=== PATIENT | male | born 1940 | race Two or more races ===

== ENCOUNTER 2021-12-14 00:36 | Emergency (ER) | payer OTHER, SELFPAY ==
[2021-12-14 00:49] VITALS: BP 139/72; PULSE 92; RESP 18; TEMP 36.1; O2SAT 98; BMI 22.6
[2021-12-14 01:01] LABS: Glucose, Whole Blood 125 mg/dL (60-115)
[2021-12-14 01:19] LABS: MANUAL DIFF FLAG NO
[2021-12-14 01:20] LABS: Basophils Percent Auto 0.2 % (0-2); Eosinophils Absolute Auto 0.1 X10*3/uL (0.0-0.4); Eosinophils Percent Auto 0.7 % (0-4); Hematocrit 43.4 % (42.0-52.0); Hemoglobin 14.4 g/dl (14.0-18.0); Imm Gran Abs Auto 0.04 X10*3/uL (0.00-0.03); Imm Gran Pct Auto 0.3 % (0.0-0.4); Lymphocytes Absolute Auto 3.2 X10*3/uL (1.2-4.9); Lymphocytes Percent Auto 26.4 % (20-40); Mean Corpuscular HGB Conc 33.2 g/dl (31.0-36.0); Mean Corpuscular Hemoglobin 30.1 pg (27.0-33.0); Mean Corpuscular Volume 90.6 fL (80.0-98.0); Mean Platelet Volume 9.7 fL (9.4-12.4); Monocytes Absolute Auto 0.9 X10*3/uL (0.1-1.2); Monocytes Percent Auto 7.7 % (2-11); Neutrophils Absolute Auto 7.9 x10*3/uL (2.0-8.3); Neutrophils Percent Auto 64.7 % (45-73); Platelet Count 239 X10*3/uL (160-400); Red Blood Count 4.79 X10*6/uL (4.60-5.80); Red Cell Distribution Width 13.8 % (11.0-16.0); White Blood Count 12.2 X10*3/uL (4.8-10.8)
[2021-12-14 01:43] LABS: COVID-19 Test Negative (Negative)
[2021-12-14 01:51] LABS: Alanine Aminotransferase 16 U/L (0-40); Albumin Level 4.3 g/dL (3.5-5.0); Alkaline Phosphatase 18 U/L (39-117); Anion Gap 17 (12-20); Aspartate Amino Transferase 45 U/L (5-37); Bilirubin Total 0.9 mg/dL (0.0-1.0); Blood Urea Nitrogen 21 mg/dL (9-16); Calcium 9.8 mg/dL (8.4-10.2); Carbon Dioxide 24 mmol/L (22-29); Chloride 103 mmol/L (96-108); Creatinine Clr Calc Pharmacy 43.7; Estimated Glomerular Filt Rate 59; Glucose Random 136 mg/dL (60-115); Potassium 4.8 mmol/L (3.3-5.1); Sodium 139 mmol/L (135-145); Total Protein 7.8 g/dL (6.5-8.0)
[2021-12-14 02:01] VITALS: BP 108/51; PULSE 84; RESP 18; O2SAT 96
--- NOTE | 2021-12-14 03:30 | ED.GENADULT ---
HPI - General Adult General Chief complaint: Altered Mental Status Stated complaint: Crisis Time Seen by Provider: 12/14/21 03:30 Source: patient and family ( and son) Mode of arrival: EMS History of Present Illness HPI narrative: This is an 81-year-old male who was brought in by please department and concern about patient with altered mental status as patient approached the officer stating that he was confused and he was unsure how much driving he had been doing and he cannot recall why he left his house. Family arrived and on further history taking they state that he left the house early in the morning at approximately 09:30 to go in run an errand and then never returned. The family had received reports that the patient was in [place], but he had left his phone and apple watch at the house so they were unable to track him. The son states that the patient is been being worked up for memory problems but otherwise has not been officially diagnosed with dementia at this time. Patient denies any difficulty breathing, chest pain/palpitations and states that he otherwise feels well. Patient states that ?I almost started crying when I saw my family come in?. Related Data Allergies Allergy/AdvReac Type Severity Reaction Status Date / Time No Known Allergies Allergy Verified 12/14/21 00:48 Review of Systems Review of Systems: Pertinent positives and negatives as stated in HPI 10 point review of systems is otherwise negative. PMFSH Past Medical History Source: nursing notes reviewed Physical Exam ED Vital Signs: Vital Signs - 24 hr 12/14/21 00:49 12/14/21 02:01 Temperature 97 F Pulse Rate 92 84 Respiratory Rate 18 18 Blood Pressure 139/72 108/51 L Pulse Oximetry 98 96 BMI result Body Mass Index 22.6 VITAL SIGNS: Reviewed. GENERAL: Well developed, well nourished, in no acute distress. HEAD: Normocephalic/atraumatic EYES: PERRLA, EOMI OROPHARYNX: no oral lesions noted, posterior pharynx clear LUNGS: Normal breath sounds. No adventitious sounds or accessory muscle use. SpO2<98> CARDIOVASCULAR: Regular rate and rhythm without noted murmurs, no JVD or lower extremity edema. ABDOMEN: Soft, non-tender, non-distended with bowel sounds. NEUROLOGIC: Alert and oriented x 4. Course Course Course Narrative: 81-year-old male with history and clinical presentation consistent with a dementia related event. On review of all investigations there are no acute findings other than mildly elevated leukocytes which are not associated with any clinical or historical findings. Family has arrived and that they will take the patient home and otherwise follow-up as it was communicated with them this is likely going to occur again and is likely associated with dementia. They acknowledge understanding and will follow-up with their primary care provider. Medical Decision Making Lab Data Result diagrams: 12/14/21 01:08 12/14/21 01:08 Labs: Lab Results 12/14/21 12/14/21 12/14/21 Range/Units 00:57 01:08 01:08 WBC 12.2 H (4.8-10.8) X10*3/uL RBC 4.79 (4.60-5.80) X10*6/uL Hgb 14.4 (14.0-18.0) g/dl Hct 43.4 (42.0-52.0) % MCV 90.6 (80.0-98.0) fL MCH 30.1 (27.0-33.0) pg MCHC 33.2 (31.0-36.0) g/dl RDW 13.8 (11.0-16.0) % Plt Count 239 (160-400) X10*3/uL MPV 9.7 (9.4-12.4) fL Immature Gran % (Auto) 0.3 (0.0-0.4) % Neut % (Auto) 64.7 (45-73) % Lymph % (Auto) 26.4 (20-40) % [place] % (Auto) 7.7 (2-11) % Eos % (Auto) 0.7 (0-4) % Baso % (Auto) 0.2 (0-2) % Lymph # (Auto) 3.2 (1.2-4.9) X10*3/uL [place] # (Auto) 0.9 (0.1-1.2) X10*3/uL Eos # (Auto) 0.1 (0.0-0.4) X10*3/uL Baso # (Auto) 0.0 (0.0-0.2) X10*3/uL Abs Immat Gran (auto) 0.04 H (0.00-0.03) X10*3/uL Absolute Neuts (auto) 7.9 (2.0-8.3) x10*3/uL Absolute Nucleated RBC 0.000 (0.0-0.012) X10*3/uL Nucleated RBC % (auto) 0.0 (0.0-0.2) /100WBC Sodium 139 (135-145) mmol/L Potassium 4.8 (3.3-5.1) mmol/L Chloride 103 (96-108) mmol/L Carbon Dioxide 24 (22-29) mmol/L Anion Gap 17 (12-20) BUN 21 H (9-16) mg/dL Creatinine 1.19 (0.5-1.4) mg/dL Estim Creat Clear Calc 43.7 Estimated GFR 59 POC Glucose 125 H (60-115) mg/dL Random Glucose 136 H (60-115) mg/dL Calcium 9.8 (8.4-10.2) mg/dL Total Bilirubin 0.9 (0.0-1.0) mg/dL AST 45 H (5-37) U/L ALT 16 (0-40) U/L Alkaline Phosphatase 18 L (39-117) U/L Total Protein 7.8 (6.5-8.0) g/dL Albumin 4.3 (3.5-5.0) g/dL COVID-19 ([facility]) (Negative) COVID-19 Clin Com 12/14/21 Range/Units 01:08 WBC (4.8-10.8) X10*3/uL RBC (4.60-5.80) X10*6/uL Hgb (14.0-18.0) g/dl Hct (42.0-52.0) % MCV (80.0-98.0) fL MCH (27.0-33.0) pg MCHC (31.0-36.0) g/dl RDW (11.0-16.0) % Plt Count (160-400) X10*3/uL MPV (9.4-12.4) fL Immature Gran % (Auto) (0.0-0.4) % Neut % (Auto) (45-73) % Lymph % (Auto) (20-40) % [place] % (Auto) (2-11) % Eos % (Auto) (0-4) % Baso % (Auto) (0-2) % Lymph # (Auto) (1.2-4.9) X10*3/uL [place] # (Auto) (0.1-1.2) X10*3/uL Eos # (Auto) (0.0-0.4) X10*3/uL Baso # (Auto) (0.0-0.2) X10*3/uL Abs Immat Gran (auto) (0.00-0.03) X10*3/uL Absolute Neuts (auto) (2.0-8.3) x10*3/uL Absolute Nucleated RBC (0.0-0.012) X10*3/uL Nucleated RBC % (auto) (0.0-0.2) /100WBC Sodium (135-145) mmol/L Potassium (3.3-5.1) mmol/L Chloride (96-108) mmol/L Carbon Dioxide (22-29) mmol/L Anion Gap (12-20) BUN (9-16) mg/dL Creatinine (0.5-1.4) mg/dL Estim Creat Clear Calc Estimated GFR POC Glucose (60-115) mg/dL Random Glucose (60-115) mg/dL Calcium (8.4-10.2) mg/dL Total Bilirubin (0.0-1.0) mg/dL AST (5-37) U/L ALT (0-40) U/L Alkaline Phosphatase (39-117) U/L Total Protein (6.5-8.0) g/dL Albumin (3.5-5.0) g/dL COVID-19 ([facility]) Negative (Negative) COVID-19 Clin Com See Note Discharge Plan Discharge Clinical Impression: Dementia Patient Disposition: Home, Self-Care Instructions: Dementia (ED) Additional Instructions: Please follow-up with your primary care provider 1st thing in the morning, to obtain additional resources as this is felt to be dementia/memory related. Return to the ER for worsening symptoms.
== END 2021-12-14 05:42 | disposition home or self-care (01) ==
LOC: HO.ED 03:56
PROVIDERS: Emergency Provider Student in an Organized Health Care Education/Training Program
DX: F03.90 Unspecified dementia, unspecified severity, without behavioral disturbance, psychotic disturbance, mood disturbance, and anxiety (principal); Z20.822 Contact with and (suspected) exposure to COVID-19
CPT/HCPCS: 80053; 82947; 85025; 87635; 99283